=== PATIENT | male | born 1975 | race Hispanic/Latino ===

== ENCOUNTER 2017-12-10 14:12 | Inpatient (IN) | payer SELFPAY ==
[~2017-12-10] VITALS: Ht 170.2 cm; Wt 47.9 kg
[2017-12-10] MEDS ORDERED: ONDANSETRON HCL 4 MG/2 ML VIAL ONE (14:43)
[2017-12-10] MEDS ORDERED: SODIUM CHLORIDE 0.9% 1000ML 1,000 ML IV ONE (14:44)
[2017-12-10] MEDS ORDERED: ZOSYN 3.375GM+NS 50ML 50 ML IV ONE (14:44)
[2017-12-10] MEDS ORDERED: MORPHINE SULFATE 4 MG/1ML SYG ONE (14:45)
[2017-12-10] MEDS ORDERED: SODIUM CHLORIDE 0.9% 50 ML IV ONE (14:45)
[2017-12-10 14:57] LABS: CREATININE 0.9 mg/dL (0.5-1.5); POTASSIUM 3.8 mmol/L (3.5-5.1)
[2017-12-10 15:01] LABS: ALBUMIN 3.6 g/dL (3.5-5.0); BILIRUBIN,TOTAL 2.2 mg/dL (0.2-1.0)
[2017-12-10 15:07] LABS: BASOPHILS % (AUTO) 0.3 % (0.0-5.0); EOSINOPHILS % (AUTO) 0.1 % (0.0-8.0); HEMATOCRIT 49.1 % (42-54); LYMPHOCYTES % (AUTO) 7.9 % (21.0-51.0); MEAN CORPUSCULAR HEMOGLOBIN 32.2 pg (27.0-33.0); MEAN CORPUSCULAR HGB CONC 35.1 g/dL (32.0-36.0); MEAN CORPUSCULAR VOLUME 91.9 fL (79-99); MONOCYTES % (AUTO) 9.3 % (3.0-13.0); NEUTROPHILS % (AUTO) 82.4 % (40.0-77.0); PLATELET COUNT (AUTO) 218 K/uL (130-400); RED BLOOD CELL COUNT(AUTO) 5.35 MIL/uL (4.50-6.20); RED CELL DISTRIBUTION WIDTH 13.7 % (11.0-15.5); WHITE BLOOD COUNT (AUTO) 20.4 K/uL (4.8-10.8)
[2017-12-10] MEDS ORDERED: IOHEXOL-350 75 ML VIAL IV ONE (15:56)
[2017-12-10] MEDS: ZOSYN 3.375GM+NS 50ML 50 ML IV SCH ×2 (17:30→22:29)
[2017-12-10] MEDS ORDERED: ZOLPIDEM TARTRATE 5 MG TAB PO PRN (17:30)
[2017-12-10] MEDS ORDERED: ACETAMINOPHEN 325 MG TAB PO PRN (17:30)
[2017-12-10 17:57] LABS: BASOPHILS % (AUTO) 0.4 % (0.0-5.0); EOSINOPHILS % (AUTO) 0.2 % (0.0-8.0); LYMPHOCYTES % (AUTO) 11.7 % (21.0-51.0); MEAN CORPUSCULAR HGB CONC 34.3 g/dL (32.0-36.0); MEAN CORPUSCULAR VOLUME 93.3 fL (79-99); MONOCYTES % (AUTO) 8.4 % (3.0-13.0); NEUTROPHILS % (AUTO) 79.3 % (40.0-77.0); PLATELET COUNT (AUTO) 211 K/uL (130-400); RED BLOOD CELL COUNT(AUTO) 4.83 MIL/uL (4.50-6.20); RED CELL DISTRIBUTION WIDTH 13.6 % (11.0-15.5); WHITE BLOOD COUNT (AUTO) 18.3 K/uL (4.8-10.8)
[2017-12-10 19:18] LABS: APPEARANCE,URINE Clear (CLEAR); BILIRUBIN,URINE Negative (NEGATIVE); COLOR,URINE Yellow (YELLOW); GLUCOSE, URINE (UA) Negative (NEGATIVE); KETONES,URINE Trace mg/dL (NEGATIVE); LEUKOCYTE ESTERASE ,URINE Negative (NEGATIVE); NITRATE,URINE Negative (NEGATIVE); OCCULT BLOOD,URINE Negative (NEGATIVE); PROTEIN,URINE Trace (NEGATIVE)
[2017-12-10 19:31] LABS: BACTERIA,URINE Rare /HPF (None Seen); RBC,URINE 0-1 /HPF (0-1); SQUAMOUS EPITHELIAL CELL,UR Rare /HPF (0-2); WBC,URINE 0-1 /HPF (0-1)
[2017-12-10 20:15] VITALS: BP 128/78
[2017-12-10] MEDS: SODIUM CHLORIDE 0.9% 1000ML 1,000 ML IV SCH ×2 (20:52→23:59)
[2017-12-10] MEDS: FAMOTIDINE/PF 20 MG/2 ML VIAL IV SCH (20:53)
[2017-12-10] MEDS: MORPHINE SULFATE 4 MG/1ML SYG IV PRN (20:53)
[2017-12-11] VITALS (7 sets, daily range): BP systolic 100–142; BP diastolic 54–80
[2017-12-11] MEDS: SODIUM CHLORIDE 0.9% 1000ML 1,000 ML IV SCH ×3 (06:15→19:59)
[2017-12-11] MEDS: ZOSYN 3.375GM+NS 50ML 50 ML IV SCH ×3 (06:15→20:35)
[2017-12-11] MEDS: MORPHINE SULFATE 4 MG/1ML SYG IV PRN ×3 (06:19→23:06)
[2017-12-11] MEDS: FAMOTIDINE/PF 20 MG/2 ML VIAL IV SCH ×2 (09:13→20:35)
[2017-12-11] MEDS: ENOXAPARIN SODIUM 40 MG/0.4 ML SYRINGE SQ SCH (09:15)
[2017-12-11] MEDS: ONDANSETRON HCL 4 MG/2 ML VIAL IV PRN (18:41)
[2017-12-12] MEDS: ZOSYN 3.375GM+NS 50ML 50 ML IV SCH ×3 (03:58→20:21)
[2017-12-12] MEDS: SODIUM CHLORIDE 0.9% 1000ML 1,000 ML IV SCH ×4 (03:58→20:21)
[2017-12-12 04:00] VITALS: BP 101/59
[2017-12-12 04:45] LABS: HEMATOCRIT 40.1 % (42-54); MEAN CORPUSCULAR HEMOGLOBIN 32.2 pg (27.0-33.0); MEAN CORPUSCULAR HGB CONC 34.4 g/dL (32.0-36.0); MEAN CORPUSCULAR VOLUME 93.4 fL (79-99); PLATELET COUNT (AUTO) 203 K/uL (130-400); RED BLOOD CELL COUNT(AUTO) 4.29 MIL/uL (4.50-6.20); RED CELL DISTRIBUTION WIDTH 13.1 % (11.0-15.5); WHITE BLOOD COUNT (AUTO) 12.8 K/uL (4.8-10.8)
[2017-12-12 05:22] LABS: ALBUMIN 2.6 g/dL (3.5-5.0); BILIRUBIN,TOTAL 2.1 mg/dL (0.2-1.0); CREATININE 0.8 mg/dL (0.5-1.5); POTASSIUM 4.2 mmol/L (3.5-5.1); TOTAL PROTEIN, SERUM 7.3 g/dL (6.0-8.3)
[2017-12-12 05:49] LABS: CRP QUANTITATIVE 328.2 mg/L (0.00-9.0)
[2017-12-12 06:24] LABS: ERYTHROCYTE SEDIMENTATION RATE 88 MM/HR (0-15)
[2017-12-12 07:50] VITALS: BP 130/77
[2017-12-12] MEDS: FAMOTIDINE/PF 20 MG/2 ML VIAL IV SCH ×2 (09:32→20:20)
[2017-12-12] MEDS: ENOXAPARIN SODIUM 40 MG/0.4 ML SYRINGE SQ SCH (09:32)
[2017-12-12] MEDS: MORPHINE SULFATE 4 MG/1ML SYG IV PRN ×2 (09:33→18:29)
[2017-12-12] MEDS: ONDANSETRON HCL 4 MG/2 ML VIAL IV PRN (09:33)
[2017-12-12 11:24] VITALS: BP 138/71
[2017-12-12 16:00] VITALS: BP 146/93
[2017-12-12 19:41] VITALS: BP 148/89
[2017-12-12 23:37] VITALS: BP 110/56
[2017-12-13] MEDS: SODIUM CHLORIDE 0.9% 1000ML 1,000 ML IV SCH ×3 (02:27→21:02)
[2017-12-13 04:00] VITALS: BP 113/59
[2017-12-13 05:03] LABS: HEMATOCRIT 38.2 % (42-54); MEAN CORPUSCULAR HEMOGLOBIN 31.3 pg (27.0-33.0); MEAN CORPUSCULAR HGB CONC 33.5 g/dL (32.0-36.0); MEAN CORPUSCULAR VOLUME 93.3 fL (79-99); PLATELET COUNT (AUTO) 207 K/uL (130-400); RED CELL DISTRIBUTION WIDTH 13.2 % (11.0-15.5); WHITE BLOOD COUNT (AUTO) 11.4 K/uL (4.8-10.8)
[2017-12-13 05:29] LABS: ALBUMIN 2.5 g/dL (3.5-5.0); BILIRUBIN,TOTAL 1.8 mg/dL (0.2-1.0); CREATININE 0.9 mg/dL (0.5-1.5); TOTAL PROTEIN, SERUM 7.1 g/dL (6.0-8.3)
[2017-12-13 05:58] LABS: CRP QUANTITATIVE 255.9 mg/L (0.00-9.0)
[2017-12-13 06:11] LABS: ERYTHROCYTE SEDIMENTATION RATE 95 MM/HR (0-15)
[2017-12-13] MEDS: ZOSYN 3.375GM+NS 50ML 50 ML IV SCH ×3 (06:38→21:08)
[2017-12-13 08:00] VITALS: BP 133/84
[2017-12-13] MEDS: ENOXAPARIN SODIUM 40 MG/0.4 ML SYRINGE SQ SCH (09:14)
[2017-12-13] MEDS: FAMOTIDINE/PF 20 MG/2 ML VIAL IV SCH ×2 (09:15→21:08)
[2017-12-13 11:00] VITALS: BP_SYST 120; BP_SYST 125; BP_DIAS 67; BP_DIAS 75
[2017-12-13 16:00] VITALS: BP 125/75
[2017-12-13 19:50] VITALS: BP 125/78
[2017-12-13 23:54] VITALS: BP 119/61
[2017-12-14] MEDS: KETOROLAC TROMETHAMINE 30MG/ML IV PRN ×3 (00:18→20:20)
[2017-12-14] MEDS: SODIUM CHLORIDE 0.9% 1000ML 1,000 ML IV SCH ×3 (02:13→15:28)
[2017-12-14 04:31] LABS: MEAN CORPUSCULAR HEMOGLOBIN 32.6 pg (27.0-33.0); MEAN CORPUSCULAR HGB CONC 34.8 g/dL (32.0-36.0); MEAN CORPUSCULAR VOLUME 93.7 fL (79-99); PLATELET COUNT (AUTO) 228 K/uL (130-400); RED BLOOD CELL COUNT(AUTO) 3.95 MIL/uL (4.50-6.20); RED CELL DISTRIBUTION WIDTH 12.9 % (11.0-15.5); WHITE BLOOD COUNT (AUTO) 9.8 K/uL (4.8-10.8)
[2017-12-14 04:50] LABS: ALBUMIN 2.4 g/dL (3.5-5.0); BILIRUBIN,TOTAL 1.9 mg/dL (0.2-1.0); CREATININE 0.8 mg/dL (0.5-1.5); POTASSIUM 3.7 mmol/L (3.5-5.1)
[2017-12-14] MEDS ORDERED: SODIUM CHLORIDE 0.9% 50 ML IV ONE ×3 (05:07→20:03)
[2017-12-14] MEDS: ZOSYN 3.375GM+NS 50ML 50 ML IV SCH ×3 (05:09→20:18)
[2017-12-14 05:13] VITALS: BP 109/71
[2017-12-14 05:14] LABS: CRP QUANTITATIVE 174.6 mg/L (0.00-9.0)
[2017-12-14 08:10] VITALS: BP 115/77
[2017-12-14] MEDS: FAMOTIDINE/PF 20 MG/2 ML VIAL IV SCH ×2 (10:44→20:18)
[2017-12-14] MEDS: ENOXAPARIN SODIUM 40 MG/0.4 ML SYRINGE SQ SCH (10:45)
[2017-12-14 11:43] VITALS: BP 128/77
[2017-12-14 16:01] VITALS: BP 131/86
[2017-12-14 20:32] VITALS: BP 135/88
[2017-12-15 00:28] VITALS: BP 115/75
[2017-12-15] MEDS: SODIUM CHLORIDE 0.9% 1000ML 1,000 ML IV SCH ×3 (02:11→17:22)
[2017-12-15] MEDS: KETOROLAC TROMETHAMINE 30MG/ML IV PRN (02:12)
[2017-12-15 04:28] VITALS: BP 114/68
[2017-12-15] MEDS ORDERED: SODIUM CHLORIDE 0.9% 50 ML IV ONE ×3 (04:28→17:25)
[2017-12-15] MEDS: ZOSYN 3.375GM+NS 50ML 50 ML IV SCH ×3 (04:59→19:03)
[2017-12-15 08:07] VITALS: BP 105/69
[2017-12-15] MEDS: FAMOTIDINE/PF 20 MG/2 ML VIAL IV SCH (10:19)
[2017-12-15] MEDS: ENOXAPARIN SODIUM 40 MG/0.4 ML SYRINGE SQ SCH (10:19)
[2017-12-15 11:33] VITALS: BP 125/78
[2017-12-15 16:21] VITALS: BP 137/90
[2017-12-15 16:21] LABS: HEMATOCRIT 36.5 % (42-54); MEAN CORPUSCULAR HEMOGLOBIN 32.3 pg (27.0-33.0); MEAN CORPUSCULAR HGB CONC 34.8 g/dL (32.0-36.0); MEAN CORPUSCULAR VOLUME 92.8 fL (79-99); PLATELET COUNT (AUTO) 244 K/uL (130-400); RED BLOOD CELL COUNT(AUTO) 3.94 MIL/uL (4.50-6.20); RED CELL DISTRIBUTION WIDTH 13.1 % (11.0-15.5); WHITE BLOOD COUNT (AUTO) 9.3 K/uL (4.8-10.8)
[2017-12-15 16:38] LABS: CREATININE 0.7 mg/dL (0.5-1.5); POTASSIUM 3.5 mmol/L (3.5-5.1)
[2017-12-15 16:58] LABS: CRP QUANTITATIVE 173.2 mg/L (0.00-9.0)
[2017-12-15] MEDS ORDERED: LEVO750T46 PO (17:33)
[2017-12-15] MEDS ORDERED: METR500T PO (17:33)
[2017-12-15] MEDS ORDERED: TRAM-355 PO (17:33)
[2017-12-15 20:12] VITALS: BP 130/84
== END 2017-12-15 20:45 | disposition home or self-care (01) | DRG 872 ==
LOC: EDH 14:12 → EDHIP 14:13 → 4BH 20:11
PROVIDERS: ADMIT Internal Medicine; ATTEND Internal Medicine
PROC: 3E0234Z Introduction of Serum, Toxoid and Vaccine into Muscle, Percutaneous Approach (ICD-10-PCS; principal; 2017-12-12)
DX: A41.9 Sepsis, unspecified organism (principal); K57.32 Diverticulitis of large intestine without perforation or abscess without bleeding; E86.1 Hypovolemia; Z23 Encounter for immunization; Z82.3 Family history of stroke; Z82.49 Family history of ischemic heart disease and other diseases of the circulatory system; Z83.3 Family history of diabetes mellitus; Z80.8 Family history of malignant neoplasm of other organs or systems
CPT/HCPCS: 36415; 74177; 80048; 80053; 81001; 82977; 83605; 83690; 85025; 85027; 85651; 86140; 99291; G0008; J1650; J1885; J2270; J2405; J2543; J3490; J7030; Q2038; Q9967

== ENCOUNTER → 2023-10-09 | Outpatient (CLI) | payer OTHER ==
[~2023-10-09] MED LIST: LEVO750T68 PO; METR500T PO; TRAM-530 PO
== END | disposition home or self-care (01) ==
LOC: RAH 08:30
PROVIDERS: ATTEND Nurse Practitioner Adult Health
DX: Z13.6 Encounter for screening for cardiovascular disorders (principal)
CPT/HCPCS: 75571